=== PATIENT | female | born 1970 | race Two or more races ===

== ENCOUNTER 2017-07-04 08:54 | Emergency (ER) | payer OTHER ==
[~2017-07-04] VITALS: Ht 160 cm; Wt 65.3 kg
[2017-07-05] MEDS ORDERED: BACTRIM DS TAB1 EACH PO (02:05)
[2017-07-05] MEDS ORDERED: URIN D.S. TABL1 EACH PO (02:05)
== END 2017-07-04 14:52 | disposition home or self-care (01) ==
LOC: ER 08:54
DX: K52.9 Noninfective gastroenteritis and colitis, unspecified (principal); R10.11 Right upper quadrant pain

== ENCOUNTER 2017-07-04 22:09 | Emergency (ER) | payer OTHER ==
[~2017-07-04] VITALS: Ht 160 cm; Wt 65.3 kg
[2017-07-05] MEDS ORDERED: URIN D.S. TABL1 EACH PO (02:05)
[2017-07-05] MEDS ORDERED: BACTRIM DS TAB1 EACH PO (02:05)
== END 2017-07-05 02:19 | disposition home or self-care (01) ==
LOC: ER 22:09
DX: N39.0 Urinary tract infection, site not specified (principal); R30.0 Dysuria; K29.70 Gastritis, unspecified, without bleeding

== ENCOUNTER 2020-01-05 21:09 | Emergency (ER) | payer OTHER ==
[~2020-01-05] VITALS: Ht 160 cm; Wt 68.9 kg
[~2020-01-05 21:09] MED LIST: BACTRIM DS TAB1 EACH PO; URIN D.S. TABL1 EACH PO
[2020-01-05] MEDS ORDERED: LEVOTHYROXINE25 MCG (21:22)
[2020-01-05] MEDS ORDERED: FERRO-SEQUELS1 EACH (21:22)
[2020-01-06] MEDS ORDERED: PEPCID AC20 MG PO (03:01)
[2020-01-06] MEDS ORDERED: ANALPRAM HC 2.530 GM RECTAL (03:01)
[2020-01-06] MEDS ORDERED: LEVSIN/SL0.125 MG SL (03:01)
== END 2020-01-06 04:32 | disposition home or self-care (01) ==
LOC: ER 21:09
DX: R10.31 Right lower quadrant pain (principal); K62.5 Hemorrhage of anus and rectum

== ENCOUNTER 2020-01-11 23:06 | Inpatient (IN) | payer OTHER ==
[~2020-01-11] VITALS: Ht 160 cm; Wt 70.3 kg
[~2020-01-11 23:06] MED LIST changes: +ANALPRAM HC 2.530 GM RECTAL; +FERRO-SEQUELS1 EACH; +LEVOTHYROXINE25 MCG; +LEVSIN/SL0.125 MG SL; +PEPCID AC20 MG PO
== END 2020-01-18 14:46 | disposition home or self-care (01) | DRG 446 ==
LOC: ER 23:06 → MEDJ 01-12 10:35
PROVIDERS: ADMIT Internal Medicine; ATTEND Internal Medicine
PROC: 0F798ZZ Dilation of Common Bile Duct, Via Natural or Artificial Opening Endoscopic (ICD-10-PCS; principal; 2020-01-17)
DX: K83.1 Obstruction of bile duct (principal); E03.9 Hypothyroidism, unspecified; J45.909 Unspecified asthma, uncomplicated; K82.8 Other specified diseases of gallbladder

== ENCOUNTER 2020-02-20 06:05 | Day surgery (SDC) | payer OTHER ==
[~2020-02-20 06:05] MED LIST changes: +MAXFE CAPLET1 EACH PO
[2020-02-20] MEDS ORDERED: SURFAK240 M1 PO (11:39)
[2020-02-20] MEDS ORDERED: ULTRACET PO (11:39)
[2020-02-20] MEDS ORDERED: POLY119PG PO (11:39)
[2020-02-20] MEDS ORDERED: NEXIUM 24HR20 MG PO (11:40)
== END 2020-02-20 15:10 | disposition home or self-care (01) ==
LOC: CIR.AMB 06:05
PROVIDERS: ATTEND Surgery
DX: K81.1 Chronic cholecystitis (principal); K66.0 Peritoneal adhesions (postprocedural) (postinfection); K42.0 Umbilical hernia with obstruction, without gangrene; K91.72 Accidental puncture and laceration of a digestive system organ or structure during other procedure

== ENCOUNTER 2020-07-10 19:33 | Emergency (ER) | payer OTHER ==
[~2020-07-10] VITALS: Ht 160 cm; Wt 68.0 kg
[~2020-07-10 19:33] MED LIST changes: +NEXIUM 24HR20 MG PO; +POLY119PG PO; +SURFAK240 M1 PO; +ULTRACET PO
[2020-07-10] MEDS ORDERED: LEVOTHYROXINE50 MCG PO (19:49)
[2020-07-10] MEDS ORDERED: LEVOTHYROXINE25 MC1 PO (19:49)
== END 2020-07-11 00:18 | disposition home or self-care (01) ==
LOC: ER 19:33
DX: N39.0 Urinary tract infection, site not specified (principal); Z20.822 Contact with and (suspected) exposure to COVID-19

== ENCOUNTER 2021-07-16 13:06 | Emergency (ER) | payer OTHER ==
[~2021-07-16] VITALS: Ht 160 cm; Wt 70.3 kg
[~2021-07-16 13:06] MED LIST changes: +LEVOTHYROXINE25 MC1 PO; +LEVOTHYROXINE50 MCG PO
== END 2021-07-16 16:10 | disposition home or self-care (01) ==
LOC: ER 13:06
DX: R51.9 Headache, unspecified (principal); E03.9 Hypothyroidism, unspecified; Z91.013 Allergy to seafood

== ENCOUNTER 2022-03-02 13:04 | Emergency (ER) | payer OTHER ==
[~2022-03-02] VITALS: Ht 160 cm; Wt 72.6 kg
== END 2022-03-02 18:27 | disposition home or self-care (01) ==
LOC: ER 13:04
DX: M54.59 Other low back pain (principal); Z88.6 Allergy status to analgesic agent; Z91.013 Allergy to seafood

== ENCOUNTER 2023-02-18 18:55 | Emergency (ER) | payer OTHER ==
[~2023-02-18] VITALS: Ht 160 cm; Wt 71.7 kg
[2023-02-18] MEDS ORDERED: EZALLOR SPRINKLE5 MG PO (19:22)
[2023-02-18] MEDS ORDERED: LEVOTHYROXINE25 MCG (19:22)
== END 2023-02-18 21:30 | disposition home or self-care (01) ==
LOC: ER 18:55
PROVIDERS: Emergency Medicine
DX: M62.838 Other muscle spasm (principal); R51.9 Headache, unspecified; Z20.822 Contact with and (suspected) exposure to COVID-19; I10 Essential (primary) hypertension; E03.8 Other specified hypothyroidism; Z88.6 Allergy status to analgesic agent; Z91.013 Allergy to seafood

== ENCOUNTER 2025-02-04 00:09 | Emergency (ER) | payer OTHER ==
[~2025-02-04] VITALS: Ht 162.6 cm; Wt 68.0 kg
[~2025-02-04 00:09] MED LIST changes: +EZALLOR SPRINKLE5 MG PO; +ZESTRIL2.5 MG PO
[2025-02-04] MEDS ORDERED: CEFTRIAXONE SODIUM 1,000 MG VIAL IM STA (03:24)
[2025-02-04] MEDS ORDERED: TRAMADOL HCL 50 MG TABLET PO STA (03:24)
[2025-02-04 04:28] LABS: URINE APPEARANCE Cloudy; URINE BILIRRUBIN Negative (NEGATIVE); URINE BLOOD Large; URINE COLOR Yellow; URINE GLUCOSE Negative (NEGATIVE); URINE KETONE Negative (NEGATIVE); URINE LEUKOCYTE Large; URINE NITRATE Negative; URINE PROTEIN 30 (NEGATIVE); URINE UROBILINOGEN 0.2 E.U./dl
[2025-02-04 04:29] LABS: URINE BACTERIA 441.5 uL (0.0-1933); URINE EPITHELIAL CELLS 7.5 uL (0.0-38.8); URINE RBC 7.6 uL (0.0-20.8); URINE WBC 1194.8 uL (0.0-23.2)
[2025-02-04 04:31] LABS: URINE CAST 0.29 uL (0.0-1.40)
[2025-02-04] MEDS ORDERED: PYRIDIUM DS200 MG PO (04:54)
[2025-02-04] MEDS ORDERED: CEPHALEXIN500 MG PO (04:54)
[2025-02-04] MEDS ORDERED: TRAMADOL HCL50 MG PO ×2 (04:56)
== END 2025-02-04 05:05 ==
LOC: ER 00:36
PROVIDERS: General Practice
DX: N39.0 Urinary tract infection, site not specified (principal); B96.29 Other Escherichia coli [E. coli] as the cause of diseases classified elsewhere; I10 Essential (primary) hypertension; E03.9 Hypothyroidism, unspecified; Z88.6 Allergy status to analgesic agent; Z91.013 Allergy to seafood

== ENCOUNTER → 2025-04-27 | Emergency (ER) | payer OTHER ==
[~2025-04-27] VITALS: Ht 160 cm; Wt 63.0 kg
[~2025-04-27] MED LIST changes: +0.9 % SODIUM CHLORIDE 1,000 ML IV SCH; +ACETAMINOPHEN 500 MG GEL..CAP PO ONE; +CEPHALEXIN500 MG PO; +CIPROFLOXACIN500 MG PO; +FAMOTIDINE/PF 20 MG/2 ML VIAL IV ONE; +FAMOTIDINE/PF 20 MG/2 ML VIAL ONE; +INTESTINEX680 M1 PO; +LOSARTAN POTASS25 MG PO; +LOSARTAN POTASS50 MG PO; +METRONIDAZOLE500 MG PO; +ONDANSETRON HCL 2 MG/ML VIAL IV ONE; +ONDANSETRON HCL 2 MG/ML VIAL ONE; +PYRIDIUM DS200 MG PO; +SYNTHROID50 MCG PO; +TRAMADOL HCL50 MG PO
[2025-04-27 16:57] LABS: BASO % 0.4 % (0.1-1.2); EOS # 0.00 (0.04-0.54); EOS % 0.0 % (0.7-7.0); LYMPH # 0.81 (1.18-3.74); LYMPH % 6.7 % (19.3-53.1); MEAN PLATELET VOLUME 11.30 fl (9.4-12.4); MONO # 0.22 (0.24-0.82); MONO % 1.8 % (4.7-12.5); NEUT # 10.91 (1.56-6.13); NEUT % 90.8 % (34.0-71.1); RED CELL DISTRIBUTION WIDTH 12.4 % (11.6-14.4)
[2025-04-27 16:58] LABS: ERYTHROCYTE SEDIMENTATION RATE 19 mm/hr (0-30)
[2025-04-27 17:42] LABS: COVID-19 AG NEGATIVE (NEGATIVE)
[2025-04-27 17:44] LABS: ALT/SGPT 28 U/L (12-78); AST/SGOT 23 U/L (15-37); BILIRUBIN TOTAL 0.59 mg/dL (0.3-1.2); BUN CREA RATIO 19 (7.0-25.0); CREATININE SERUM 0.63 mg/dL (0.55-1.02); GFR 98.47; GLOBULINA 3.5 G/DL (2.4-3.5); GLUCOSE FASTING 106 mg/dL (65-100); OSMOLALITY SERUM 278 MOSM/KG (275-295)
[2025-04-27 18:52] LABS: URINE APPEARANCE Clear; URINE BILIRRUBIN Negative (NEGATIVE); URINE BLOOD NHT; URINE COLOR Yellow; URINE GLUCOSE Negative (NEGATIVE); URINE LEUKOCYTE Negative; URINE NITRATE Positive; URINE UROBILINOGEN 0.2 E.U./dl
[2025-04-27 19:01] LABS: URINE EPITHELIAL CELLS 17.9 uL (0.0-38.8); URINE RBC 13.4 uL (0.0-20.8); URINE WBC 94.8 uL (0.0-23.2)
[2025-04-27 19:02] LABS: TYPE CELLS SQUAMOUS; URINE BACTERIA > 9821.5 uL (0.0-1933); URINE CAST 0.73 uL (0.0-1.40); URINE KETONE 80 (NEGATIVE); URINE PROTEIN 100 (NEGATIVE)
== END | disposition home or self-care (01) ==
LOC: ER 12:50
PROVIDERS: Student in an Organized Health Care Education/Training Program
DX: K52.89 Other specified noninfective gastroenteritis and colitis (principal); Z20.822 Contact with and (suspected) exposure to COVID-19; I10 Essential (primary) hypertension; E03.9 Hypothyroidism, unspecified; Z88.6 Allergy status to analgesic agent; Z91.013 Allergy to seafood
CPT/HCPCS: 36415; 74177; 96365; 99283; J7030; Q9965